=== PATIENT | female | born 1990 | race Caucasian/White ===

== ENCOUNTER 2017-10-17 09:44 | Emergency (ER) | payer OTHER ==
[~2017-10-17] VITALS: Ht 162.6 cm; Wt 106.0 kg
[2017-10-17 09:45] VITALS: BP 127/64; PULSE 93; RESP 14; TEMP 98.2; O2SAT 97
[2017-10-17] MEDS ORDERED: SODIUM CHLOR 0.9% 1000 ML INJ 1,000 ML IV SCH (11:23)
[2017-10-17] MEDS ORDERED: ONDANSETRON HCL 4 MG/2 ML VIAL IVP ONE (11:30)
[2017-10-17] MEDS ORDERED: SODIUM CHLORIDE 0.9% FLUSH 10 ML FLUSH IV FLUSH PRN (11:30)
[2017-10-17] MEDS ORDERED: KETOROLAC TROMETHAMINE 30 MG/ML (IVP) VIAL IVP ONE (12:00)
[2017-10-17 12:14] LABS: BASOPHIL # 0.1 TH/MM3 (0-0.2); BASOPHIL % 0.7 % (0.0-2.0); EOSINOPHIL # 0.5 TH/MM3 (0-0.4); EOSINOPHIL % 3.3 % (0.0-4.0); HEMATOCRIT 34.7 % (35.0-46.0); HEMOGLOBIN 11.3 GM/DL (11.6-15.3); LYMPH % 27.5 % (9.0-44.0); MEAN CELL VOLUME 80.5 FL (80.0-100.0); MEAN CORPUSCULAR HEMOGLOBIN 26.2 PG (27.0-34.0); MEAN CORPUSCULAR HGB CONC 32.6 % (32.0-36.0); MEAN PLATELET VOLUME 9.5 FL (7.0-11.0); MONO % 6.1 % (0.0-8.0); MONOCYTE # 0.9 TH/MM3 (0-0.9); NEUT % 62.4 % (16.0-70.0); PLATELET COUNT 340 TH/MM3 (150-450); RED BLOOD COUNT 4.31 MIL/MM3 (4.00-5.30); RED CELL DISTRIBUTION WIDTH 14.5 % (11.6-17.2); WHITE BLOOD COUNT 14.5 TH/MM3 (4.0-11.0)
[2017-10-17 12:14] LABS: BACTERIA, URINE RARE /hpf; BILIRUBIN, URINE NEG (NEG); BLOOD, URINE NEG (NEG); GLUCOSE,URINE NEG (NEG); KETONE, URINE NEG (NEG); MUCUS URINE FEW /lpf (OCC); NITRITE,URINE NEG (NEG); PH, URINE 5.5 (5.0-8.5); SQUAMOUS EPITHELIAL CELL URINE 10 /hpf (0-5); URINE COLOR YELLOW (YELLW/STRAW); URINE LEUKOCYTE ESTERASE SMALL (NEG)
[2017-10-17 12:15] LABS: ALKALINE PHOSPHATASE 97 U/L (45-117); TOTAL BILIRUBIN ADULT 0.5 MG/DL (0.2-1.0); TOTAL PROTEIN 8.7 GM/DL (6.4-8.2)
--- NOTE | 2017-10-17 12:27 | PD ---
HPI Chief Complaint: Abdominal Pain Time Seen by Provider: 11:21 Travel History International Travel<30 days: No Contact w/Intl Traveler<30days: No Traveled to known affect area: No History of Present Illness HPI 27-year-old female presents to the emergency department with complaint of right upper quadrant abdominal pain, nausea, vomiting that started this morning. Denies fevers. Denies abnormal vaginal discharge, odor, itch. Denies dysuria, hematuria. Denies diarrhea. Denies contraception use. Has tried taking Motrin for symptom management. Rates pain 02/03. Describes it as a pressure. No known relieving or aggravating factors. History of umbilical surgery, otherwise denies other abdominal surgeries. Dr. Dominguezin his primary care provider. No known allergies. Denies significant past medical history. Has no other medical complaints. No other modifying factors or associated signs and symptoms. PFSH Past Medical History Medical History: Denies Significant Hx Tetanus Vaccination: > 5 Years ?: Not LMP: 10/02/17 Past Surgical History Other Surgery: Yes (HERNIA ) Social History Alcohol Use: No Tobacco Use: No Substance Use: No Allergies-Medications (Allergen,Severity, Reaction): Coded Allergies: No Known Allergies (Unverified , 10/17/17) Reported Meds & Prescriptions Reported Meds & Active Scripts Active Zofran Odt (Ondansetron Odt) 4 Mg Tab 4 Mg SL Q8HR PRN Ibuprofen 800 Mg Tab 800 Mg PO Q6HR PRN Review of Systems Except as stated in HPI: all other systems reviewed are Neg Physical Exam Narrative GENERAL: Well-nourished, well-developed female patient, in no acute distress; afebrile; nontoxic-appearing SKIN: Warm and dry. HEAD: Atraumatic. Normocephalic. EYES: Pupils equal and round. No scleral icterus. No injection or drainage. ENT: Mucosa pink and moist. Airway patent. NECK: Trachea midline. CARDIOVASCULAR: Regular rate and rhythm. No murmur appreciated. RESPIRATORY: No accessory muscle use. Clear to auscultation. Breath sounds equal bilaterally. GASTROINTESTINAL: Abdomen soft, tenderness on palpation to right upper quadrant , nondistended. Hepatic and splenic margins not palpable. Positive Rogel's sign Bowel sounds are active 4 quadrants. Nonrigid. No rebound tenderness. No guarding. BACK: No CVA tenderness. MUSCULOSKELETAL: No obvious deformities. No clubbing. No cyanosis. No edema. NEUROLOGICAL: Awake and alert. Oriented 3. No obvious cranial nerve deficits. Motor grossly within normal limits. Normal speech. PSYCHIATRIC: Appropriate mood and affect; insight and judgment normal. Data Data Last Documented VS Vital Signs Date Time Temp Pulse Resp B/P (MAP) Pulse Ox O2 Delivery O2 Flow Rate FiO2 10/17/17 09:45 98.2 93 14 127/64 (85) 97 Orders Orders Complete Blood Count With Diff (10/17/17 11:23) Comprehensive Metabolic Panel (10/17/17 11:23) Lipase (10/17/17 11:23) Urinalysis - C+S If Indicated (10/17/17 11:23) Iv Access Insert/Monitor (10/17/17 11:23) Ondansetron Inj (Zofran Inj) (10/17/17 11:30) Sodium Chlor 0.9% 1000 Ml Inj (Ns 1000 M (10/17/17 11:23) Sodium Chloride 0.9% Flush (Ns Flush) (10/17/17 11:30) Ed Urine Pregnancytest Poc (10/17/17 11:23) Us Abdomen Gallbladder (10/17/17 ) Ketorolac Inj (Toradol Inj) (10/17/17 12:00) Ed Discharge Order (10/17/17 13:46) Labs Laboratory Tests Test 10/17/17 11:33 10/17/17 11:35 Urine Color YELLOW Urine Turbidity HAZY Urine pH 5.5 Urine Specific [place] 1.031 Urine Protein TRACE mg/dL Urine Glucose (UA) NEG mg/dL Urine Ketones NEG mg/dL Urine Occult Blood NEG Urine Nitrite NEG Urine Bilirubin NEG Urine Urobilinogen LESS THAN 2.0 MG/DL Urine Leukocyte Esterase SMALL Urine RBC 1 /hpf Urine WBC 6 /hpf Urine Squamous Epithelial Cells 10 /hpf Urine Bacteria RARE /hpf Urine Mucus FEW /lpf Microscopic Urinalysis Comment CULT NOT INDICATED White Blood Count 14.5 TH/MM3 Red Blood Count 4.31 MIL/MM3 Hemoglobin 11.3 GM/DL Hematocrit 34.7 % Mean Corpuscular Volume 80.5 FL Mean Corpuscular Hemoglobin 26.2 PG Mean Corpuscular Hemoglobin Concent 32.6 % Red Cell Distribution Width 14.5 % Platelet Count 340 TH/MM3 Mean Platelet Volume 9.5 FL Neutrophils (%) (Auto) 62.4 % Lymphocytes (%) (Auto) 27.5 % Monocytes (%) (Auto) 6.1 % Eosinophils (%) (Auto) 3.3 % Basophils (%) (Auto) 0.7 % Neutrophils # (Auto) 9.0 TH/MM3 Lymphocytes # (Auto) 4.0 TH/MM3 Monocytes # (Auto) 0.9 TH/MM3 Eosinophils # (Auto) 0.5 TH/MM3 Basophils # (Auto) 0.1 TH/MM3 CBC Comment AUTO DIFF Differential Comment AUTO DIFF CONFIRMED Platelet Estimate NORMAL Platelet Morphology Comment CLUMPED Blood Urea Nitrogen 11 MG/DL Creatinine 0.41 MG/DL Random Glucose 83 MG/DL Total Protein 8.7 GM/DL Albumin 3.7 GM/DL Calcium Level 8.9 MG/DL Alkaline Phosphatase 97 U/L Aspartate Amino Transf (AST/SGOT) 39 U/L Alanine Aminotransferase (ALT/SGPT) 33 U/L Total Bilirubin 0.5 MG/DL Sodium Level 137 MEQ/L Potassium Level 3.8 MEQ/L Chloride Level 105 MEQ/L Carbon Dioxide Level 26.4 MEQ/L Anion Gap 6 MEQ/L Estimat Glomerular Filtration Rate 186 ML/MIN Lipase 64 U/L MDM Medical Decision Making Medical Screen Exam Complete: Yes Emergency Medical Condition: Yes Medical Record Reviewed: Yes Differential Diagnosis Cholecystitis, cholelithiasis, right upper quadrant abdominal pain, GERD, gastritis, gastroenteritis, PUD Narrative Course 27-year-old female with right upper quadrant abdominal pain on exam. Reports nausea and vomiting. IV, normal saline bolus, Zofran, Toradol, CBC, CMP, lipase , urinalysis, UPT, right upper quadrant ultrasound ordered. 1250: WBC 14.5, otherwise CBC unremarkable. Urinalysis unremarkable. UPT negative. Right upper quadrant ultrasound concludes: Numerous gallstones with gallbladder sludge and gallbladder thickening. Findings could represent cholecystitis in patient with right upper quadrant pain. 1343: CMP unremarkable. Lipase 46. Dr. Jeffrey reviewed labs and agree patient is stable for discharge and can follow up outpatient. Instructed patient to follow-up with gastroenterology. Ibuprofen and Zofran prescription for home. Patient provided a copy of the ultrasound report. Instructed patient to follow up with primary care provider. Patient verbalizes understanding and agreement with treatment plan. Patient is medically cleared and stable for discharge. Discussed reasons to return to the emergency department. Patient agrees with treatment plan. The patients vital signs are stable and the patient is stable for outpatient follow-up and treatment. Patient discharged home, stable and in no acute distress. Diagnosis Primary Impression: Cholecystitis Additional Impression: Gall stones Referrals: Chief Clinical Officer Primary Care Physician Patient Instructions: Cholecystitis (ED), Gallstones (ED), General Instructions Additional Instructions: Ibuprofen or Tylenol as directed and as needed for pain Zofran as directed and as needed for nausea/vomiting Avoid fatty foods Follow-up with gastroenterology Follow-up with primary care provider Return to the emergency department immediately if worsening of symptoms Med/Other Pt SpecificInfo: Prescription(s) given Scripts Ondansetron Odt (Zofran Odt) 4 Mg Tab 4 MG SL Q8HR Y for Nausea/Vomiting, #10 TAB 0 Refills Prov: Linnette Schuster 10/17/17 Ibuprofen (Ibuprofen) 800 Mg Tab 800 MG PO Q6HR Y for PAIN, #30 TAB 0 Refills Prov: Linnette Schuster 10/17/17 Disposition: 01 DISCHARGE HOME Condition: Stable Linnette Schuster Oct 17, 2017 12:27
--- NOTE | 2017-10-17 12:47 | RADRPT ---
EXAM DATE/TIME: 10/17/2017 12:14 [facility] COMPARISON: No previous studies available for comparison. INDICATIONS : Right upper quadrant pain. MEDICAL HISTORY : Right upper quadrant pain. SURGICAL HISTORY : Hernia repair. ENCOUNTER: Initial ACUITY: 1 day PAIN SCORE: 4/10 LOCATION: Right upper quadrant MEASUREMENTS: LIVER: 21.2 cm length COMMON DUCT: 5 mm RIGHT KIDNEY: 11.9 x 5.6 x 5.7 cm FINDINGS: LIVER: Normal echotexture without focal lesion or ductal dilatation. COMMON DUCT: No intraluminal mass or stone visualized. GALLBLADDER: Numerous stones noted in gallbladder with extensive sludge and gallbladder wall thickening to 7 mm. PANCREAS: The visualized portions are within normal limits. RIGHT KIDNEY: No evidence of hydronephrosis, stone, or mass. CONCLUSION: 1. Numerous gallstones with gallbladder sludge and gallbladder thickening. Findings could represent c holecystitis in patient with right upper quadrant pain. Nasir Woodward MD on October 17, 2017 at 12:43 Board Certified Radiologist. This report was verified electronically.
--- NOTE | 2017-10-17 13:08 | PD ---
Data Data Last Documented VS Vital Signs Date Time Temp Pulse Resp B/P (MAP) Pulse Ox O2 Delivery O2 Flow Rate FiO2 10/17/17 14:05 67 18 118/59 (78) 98 10/17/17 09:45 98.2 Orders Orders Complete Blood Count With Diff (10/17/17 11:23) Comprehensive Metabolic Panel (10/17/17 11:23) Lipase (10/17/17 11:23) Urinalysis - C+S If Indicated (10/17/17 11:23) Iv Access Insert/Monitor (10/17/17 11:23) Ondansetron Inj (Zofran Inj) (10/17/17 11:30) Sodium Chlor 0.9% 1000 Ml Inj (Ns 1000 M (10/17/17 11:23) Sodium Chloride 0.9% Flush (Ns Flush) (10/17/17 11:30) Ed Urine Pregnancytest Poc (10/17/17 11:23) Us Abdomen Gallbladder (10/17/17 ) Ketorolac Inj (Toradol Inj) (10/17/17 12:00) Ed Discharge Order (10/17/17 13:46) Labs Laboratory Tests Test 10/17/17 11:33 10/17/17 11:35 Urine Color YELLOW Urine Turbidity HAZY Urine pH 5.5 Urine Specific [place] 1.031 Urine Protein TRACE mg/dL Urine Glucose (UA) NEG mg/dL Urine Ketones NEG mg/dL Urine Occult Blood NEG Urine Nitrite NEG Urine Bilirubin NEG Urine Urobilinogen LESS THAN 2.0 MG/DL Urine Leukocyte Esterase SMALL Urine RBC 1 /hpf Urine WBC 6 /hpf Urine Squamous Epithelial Cells 10 /hpf Urine Bacteria RARE /hpf Urine Mucus FEW /lpf Microscopic Urinalysis Comment CULT NOT INDICATED White Blood Count 14.5 TH/MM3 Red Blood Count 4.31 MIL/MM3 Hemoglobin 11.3 GM/DL Hematocrit 34.7 % Mean Corpuscular Volume 80.5 FL Mean Corpuscular Hemoglobin 26.2 PG Mean Corpuscular Hemoglobin Concent 32.6 % Red Cell Distribution Width 14.5 % Platelet Count 340 TH/MM3 Mean Platelet Volume 9.5 FL Neutrophils (%) (Auto) 62.4 % Lymphocytes (%) (Auto) 27.5 % Monocytes (%) (Auto) 6.1 % Eosinophils (%) (Auto) 3.3 % Basophils (%) (Auto) 0.7 % Neutrophils # (Auto) 9.0 TH/MM3 Lymphocytes # (Auto) 4.0 TH/MM3 Monocytes # (Auto) 0.9 TH/MM3 Eosinophils # (Auto) 0.5 TH/MM3 Basophils # (Auto) 0.1 TH/MM3 CBC Comment AUTO DIFF Differential Comment AUTO DIFF CONFIRMED Platelet Estimate NORMAL Platelet Morphology Comment CLUMPED Blood Urea Nitrogen 11 MG/DL Creatinine 0.41 MG/DL Random Glucose 83 MG/DL Total Protein 8.7 GM/DL Albumin 3.7 GM/DL Calcium Level 8.9 MG/DL Alkaline Phosphatase 97 U/L Aspartate Amino Transf (AST/SGOT) 39 U/L Alanine Aminotransferase (ALT/SGPT) 33 U/L Total Bilirubin 0.5 MG/DL Sodium Level 137 MEQ/L Potassium Level 3.8 MEQ/L Chloride Level 105 MEQ/L Carbon Dioxide Level 26.4 MEQ/L Anion Gap 6 MEQ/L Estimat Glomerular Filtration Rate 186 ML/MIN Lipase 64 U/L MDM Supervised Visit with [facility]: Yes Narrative Course I, Dr. Jeffrey, have reviewed the advance practice practitioner's documentation and am in agreement, met with the patient face to face, made the diagnosis, and the medical decision making was done by me. *My assessment and Findings: Patient seen and examined by me, I have reviewed her labs as well as her ultrasound findings. I discussed with her that certainly her symptoms could be in line with biliary colic, at this time her Rogel sign is negative, she is tolerating p.o. and abdomen is benign after Toradol. I discussed with her that likely she will need to have her gallbladder removed but I think she is stable for outpatient follow-up at this time. I discussed return to ED criteria with her and symptomatic management. Diagnosis Primary Impression: Cholecystitis Additional Impression: Gall stones Scripts Ondansetron Odt (Zofran Odt) 4 Mg Tab 4 MG SL Q8HR Y for Nausea/Vomiting, #10 TAB 0 Refills Prov: Linnette Schuster 10/17/17 Ibuprofen (Ibuprofen) 800 Mg Tab 800 MG PO Q6HR Y for PAIN, #30 TAB 0 Refills Prov: Linnette Schuster 10/17/17 Antwon Jeffrey MD Oct 17, 2017 13:08
[2017-10-17 13:37] LABS: ALBUMIN 3.7 GM/DL (3.4-5.0); ALT (GPT) 33 U/L (10-53); AST (GOT) 39 U/L (15-37); BICARBONATE 26.4 MEQ/L (21.0-32.0); BLOOD UREA NITROGEN 11 MG/DL (7-18); CALCIUM 8.9 MG/DL (8.5-10.1); CHLORIDE 105 MEQ/L (98-107); CREATININE 0.41 MG/DL (0.50-1.00); GLOMERULAR FILTRATION RATE 186 ML/MIN (>89); GLUCOSE,RANDOM 83 MG/DL (74-106); SODIUM (NA) 137 MEQ/L (136-145)
[2017-10-17] MEDS ORDERED: IBUP1TAB7 PO (13:42)
[2017-10-17] MEDS ORDERED: ZOFR4TAB3 SL (13:44)
[2017-10-17 14:05] VITALS: BP 118/59
== END 2017-10-17 14:09 | disposition home or self-care (01) ==
LOC: NEPD 09:44
DX: K81.9 Cholecystitis, unspecified (principal); K80.20 Calculus of gallbladder without cholecystitis without obstruction; R11.2 Nausea with vomiting, unspecified
CPT/HCPCS: 76705; 80053; 81001; 83690; 84703; 85025; 96361; 96374; 96375; 99284; J1885; J2405; J7030